=== PATIENT | male | born 1975 | race Caucasian/White ===

== ENCOUNTER 2020-01-26 13:32 | Outpatient (CLI) | payer OTHER ==
--- NOTE | 2020-01-26 15:46 | MRI ---
MRI cervical spine with and without contrast: DATE: 01/26/2020 HISTORY: 44-year-old male with "M 54.12 cervical radiculopathy and M 50.2 HNP" Also bilateral lower extremity weakness. Dr. Narayan Garcia notified of the suspicion for cord tumor by text at 3:40 PM 01/26/2020 and by Jeffrey cat nnect at 3:17 PM 01/26/2020. Also, code T submitted COMPARISON: None available FINDINGS: The cervical spinal cord is expanded from approximately C4-5 through C6-7. There is T2-hyperintense i ntramedullary signal abnormality, which could represent cord edema, or combination of cord edema and neoplastic tumor material, from approximately mid C4 level to mid C7 level. There is no syrinx. A t the C5-6 level, there is patchy intramedullary enhancement of the of the cord diffusely, except for apparent sparing of the central guerrero matter. Vertebral body heights are maintained. No high-grade facet DJD at any level. Mild disc space narrowin g at C5-6 and C6-7. Nonspecific diffusely hypointense signal on T1 WI, perhaps representing red marrow conversion. C1-2: No central stenosis. C2-3: Essentially normal. C3-4: Shallow, mild broad-based disc-osteophyte complex encroaches upon ventral aspect of spinal roro l, causing mild to moderate central spinal canal stenosis. Small bilateral uncinate process osteophytes cause moderate right and mild to moderate left neural foraminal stenosis. C4-5: Broad-based disc-osteophyte complex encroaches upon anterior aspect of spinal canal. There is a superimposed right paracentral-right lateral, more focal component of disc herniation or disc-osteophyte complex, which is contiguous with small to moderate-sized right uncinate process oste ophytes, resulting in severe right neural foraminal stenosis. Left uncinate process osteophytes result in severe left neural foraminal stenosis. Together with the mildly expanded spinal cord, these factors result in moderate central spinal canal stenosis. C5-6: Broad-based central, bilateral paracentral, and bilateral lateral disc herniation or disc-osteo phyte complex, larger than the one at C4-5, indents the expanded spinal cord, causing severe central spinal canal stenosis. Moderate to large bilateral uncinate process osteophytes cause severe bilateral neural foraminal stenosis. C6-7: Broad-based central, bilateral paracentral, and bilateral lateral disc-osteophyte complex encro aches upon spinal canal. This, together with expanded spinal cord, results in severe central spinal canal stenosis. Large bilateral uncinate process osteophytes cause very severe bilateral neural ivan inal stenosis. C7-T1: No central or neural foraminal stenosis. IMPRESSION: 1.) Abnormal intramedullary signal and cord expansion, from approximately C4 through C7, with intrame dullary enhancement at C5-6 involving the low peripheral white matter, but sparing of central guerrero matter. 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 2) high-grade central spinal canal stenosis and severe bilateral neural foraminal stenosis, at C4-5, C5-6, and C6-7. The central spinal canal stenosis is severe at C4-5 and C5-6, with extrinsic cord impingement, due to broad-based disc-osteophyte complexes. The expansion of the spinal cord contribut es to the severe central spinal canal stenosis and cord impingement at these levels.
[2020-01-26] MEDS ORDERED: Magnevist 469MG/ML 20 ML VIAL ONE (15:48)
== END 2020-01-26 13:33 | disposition home or self-care (01) ==
LOC: TBSIIMAG 13:32
PROVIDERS: ATTEND Surgery
DX: M50.10 Cervical disc disorder with radiculopathy, unspecified cervical region (principal); M47.22 Other spondylosis with radiculopathy, cervical region; M48.02 Spinal stenosis, cervical region
CPT/HCPCS: 72156; A9579

== ENCOUNTER 2020-02-06 12:30 | Inpatient (IN) | payer OTHER ==
[2020-02-09 12:10] VITALS: BMI 23.0
[2020-02-10] MEDS ORDERED: Thrombin 5000 UNITS/5 ML VIAL ONE (06:39)
[2020-02-10] MEDS ORDERED: Bacitracin Zinc Ointment 30 gm TUBE ONE (06:39)
[2020-02-10 06:55] LABS: #Basophils 0.1 thou/uL (0.0-0.2); #Eosinphils 0.2 thou/uL (0.0-0.7); #Lymphocytes 2.5 thou/uL (1.20-3.40); #Monocytes 0.7 thou/uL (0.11-0.59); #Neutrophils 4.9 thou/uL (1.40-6.50); %Basophils 0.9 % (0.0-1.0); %Eosinophils 2.9 % (0.0-10.0); %Lymphocytes 29.9 % (21.0-51.0); %Monocytes 7.8 % (0.0-10.0); %Neutrophils 58.5 % (42.0-75.0); Hemoglobin 15.3 g/dL (14.0-18.0); Mean Corpuscular HGB CONC 33.5 g/dL (32.0-36.0); Mean Corpuscular Hemoglobin 32.3 pg (27.0-31.0); Mean Corpuscular Volume 96.4 fL (78.0-98.0); Mean Platelet Volume 7.4 fL (7.4-10.4); Platelet Count 286 thou/uL (130-400); RBC Distribution Width 12.5 % (11.5-14.5); Red Blood Cell (RBC) Count 4.75 mill/uL (4.70-6.10); White Blood Cell (WBC) Count 8.4 thou/uL (4.8-10.8)
[2020-02-10 07:03] LABS: INR-International Normal Ratio 0.9; PTT 30.1 sec (22.9-36.1); Prothrombin Time 12.6 sec (12.0-14.7)
[2020-02-10] MEDS ORDERED: Fentanyl 250 MCG/5 ML VIAL ONE (07:11)
[2020-02-10 07:12] LABS: Anion Gap 12 mmol/L (10-20); BUN (Urea Nitrogen) 15 mg/dL (8.9-20.6); Calc. Creatinine Clearance 82 mL/min (70-130); Calcium 9.2 mg/dL (7.8-10.44); Carbon Dioxide 25 mmol/L (22-29); Chloride 109 mmol/L (98-107); Estimated GFR-MDRD 65; Glucose 96 mg/dL (70-105); Potassium 4.1 mmol/L (3.5-5.1); Sodium 142 mmol/L (136-145)
[2020-02-10] MEDS ORDERED: Ketamine 50 MG/ML (10ML VIAL) ONE (07:48)
[2020-02-10] MEDS ORDERED: Vecuronium 10 MG VIAL ONE ×2 (10:30→11:15)
[2020-02-10] MEDS ORDERED: Rocuronium Bromide 10 MG/ML (10ML VIAL) ONE (11:15)
[2020-02-10] MEDS ORDERED: Lidocaine 1% PF 5 ML VIAL ONE (11:15)
[2020-02-10] MEDS ORDERED: Ondansetron PF 4 MG/2 ML Vial ONE (11:15)
[2020-02-10] MEDS ORDERED: PROPOFOL 200 MG/20 ML VIAL ONE (11:15)
[2020-02-10] MEDS ORDERED: Dexamethasone 20 MG/5 ML VIAL ONE (11:15)
[2020-02-10] MEDS ORDERED: PHENYLEPHRINE-NS 100 MCG/ML 10 ML SYRINGE ONE (11:15)
[2020-02-10] MEDS ORDERED: Metoclopramide HCl 10 MG/2 ML VIAL ONE (11:15)
[2020-02-10] MEDS ORDERED: Morphine Sulfate 2 MG/ML SYRINGE SLOW IVP PRN (11:51)
[2020-02-10] MEDS ORDERED: HYDROmorphone 2 MG/ML VIAL SLOW IVP PRN (11:51)
[2020-02-10] MEDS ORDERED: Promethazine HCl 25 MG/ML VIAL SLOW IVP PRN (11:51)
[2020-02-10] MEDS ORDERED: Promethazine HCl 25 MG/ML VIAL IM PRN ×2 (11:51→18:07)
[2020-02-10] MEDS ORDERED: Ondansetron HCl/PF 4 MG/2 ML Vial IVP PRN (11:51)
[2020-02-10] MEDS ORDERED: PACU-Morphine 4MG/ML VIAL SLOW IVP PRN (11:51)
[2020-02-10] MEDS ORDERED: SUGAMMADEX SODIUM 200 MG/2 ML VIAL ONE (12:05)
[2020-02-10] MEDS ORDERED: Fleet Enema 133 ML BOT PR PRN (12:26)
[2020-02-10] MEDS ORDERED: Bisacodyl 10 MG SUPP PR PRN (12:26)
[2020-02-10] MEDS ORDERED: Ondansetron PF 4 MG/2 ML Vial IVP PRN ×2 (12:26→18:07)
[2020-02-10] MEDS ORDERED: Acetaminophen 325 MG TAB PO PRN (12:26)
[2020-02-10] MEDS ORDERED: Acetaminophen/Codeine 30-300mg Tablet PO PRN (12:26)
[2020-02-10] MEDS ORDERED: Mag-Al 1200 mg/1200 mg/30 ML UDCUP PO PRN (12:26)
[2020-02-10] MEDS ORDERED: traMADol HCl 50 MG TAB PO PRN (12:26)
[2020-02-10] MEDS ORDERED: HYDROcodone/Acetaminophen 7.5/325 mg Tablet PO PRN (12:26)
[2020-02-10] MEDS ORDERED: Milk Of Magnesia 30 ML UDCUP PO PRN (12:26)
[2020-02-10] MEDS ORDERED: Fentanyl 100 MCG/2 ML VIAL ONE (12:56)
[2020-02-10] MEDS: Sodium Chloride 0.9% 1,000 ML IV SCH (15:03)
[2020-02-10] MEDS: CEFAZOLIN 2 GM in Premix Bag 1 BAG IVPB SCH ×2 (15:04→22:46)
[2020-02-10] MEDS: Morphine 2 MG/ML SYRINGE SLOW IVP PRN ×2 (15:05→16:53)
[2020-02-10] MEDS: Cyclobenzaprine 10 MG TAB PO SCH ×2 (15:05→21:01)
[2020-02-10] MEDS ORDERED: diphenhydrAMINE 50 MG/ML VIAL IM/IV PRN (18:07)
[2020-02-10] MEDS ORDERED: Zolpidem Tartrate 5 MG TAB PO PRN (18:07)
[2020-02-10] MEDS ORDERED: Naloxone HCl 0.4 mg/ml Vial IV PRN (18:07)
[2020-02-10] MEDS ORDERED: diphenhydrAMINE 25 MG CAP PO PRN (18:07)
[2020-02-10] MEDS ORDERED: Ketorolac Tromethamine 30 MG/ML VIAL ONE (18:33)
[2020-02-10] MEDS: Morphine Sulfate 100 MG in Dextrose 5% in Water 98 ML IV SCH (18:48)
[2020-02-10] MEDS: DULoxetine 30 MG CAP PO SCH (21:01)
[2020-02-10] MEDS: Mirtazapine 15 MG TAB PO SCH (21:02)
[2020-02-10] MEDS: hydrOXYzine 25 MG TAB PO SCH (21:02)
[2020-02-11] MEDS: Sodium Chloride 0.9% 1,000 ML IV SCH ×2 (02:13→15:00)
[2020-02-11] MEDS: CEFAZOLIN 2 GM in Premix Bag 1 BAG IVPB SCH ×3 (06:11→23:27)
--- NOTE | 2020-02-11 06:26 | OP ---
DATE OF PROCEDURE: 02/10/2020 LOCATION: OR 12. SIGNAL TOWER OPERATOR: Елена Randle PA-C PREPROCEDURE DIAGNOSIS: Severe cervical stenosis with spinal cord compression, neurologic decline. POSTPROCEDURE DIAGNOSIS: Severe cervical stenosis with spinal cord compression, neurologic decline. PROCEDURES PERFORMED: 1. Anterior C5-C6 and C6-C7 diskectomies for decompression of spinal cord and nerve roots. 2. Placement of interbody spacer for arthrodesis with local bone autograft with allograft C5-C6 and C6-C7. 3. Anterior cervical plate and screw fixation, C5, C6, and C7. 4. Use of operative microscope for microdissection. 5. C5-C6 and C6-C7 laminectomies, partial facetectomies, foraminotomies. 6. C5, C6, and C7 posterolateral fusion with screw alicia fixation. DESCRIPTION OF PROCEDURE: After informed consent was obtained from the patient, the patient was brought to the OR. Proper patient, pause, and identification were carried out. He was placed under excellent general endotracheal anesthesia and positioned supine on the OR table. The right anterior oblique tong allowed for approach to C5, C6, and C7 segments. This area was sterilely cleansed, prepared, and draped. Proper patient, pause, and identification were carried out. The wound was then opened with combination of sharp, monopolar, and blunt dissection. We proceeded lateral to the tracheoesophageal bundle, medial to the right carotid sheath. We identified the prevertebral layer of deep cervical fascia. Retractors were placed. C5, C6, and C7 segments and disks were exposed. Localization film confirmed our area of interest. We then performed distraction at C5-C6. The microscope was used for microdissection. C5-C6 diskectomy was then performed with excellent decompression of the common dural tube and C6 nerve roots. Interbody spacer packed with graft was placed for initiation of arthrodesis. We then did the same thing at C6-C7 diskectomy and placement of interbody spacer packed with graft. Microscope was then removed. Anterior cervical plate and screw fixation at C5, C6, and C7 then occurred with final tightening. The wound was closed in anatomic layers following meticulous hemostasis and irrigation over drain. We then positioned the patient prone with Wick Claudia cigar head piercer locked in neutral position. C5, C6, and C7 segments were drawn out posteriorly, and this area was sterilely cleansed, prepared, and draped. Proper patient, pause, and identification were carried out. The wound was then opened with a combination of sharp, monopolar, and blunt dissection. C5, C6, and C7 dorsal spines and lamina were exposed. Localization film confirmed our area of interest. We then performed C5, C6, and C7 laminectomies, partial facetectomies, foraminotomies, and screws were placed in the lateral masses, C5, C6, and C7 along with rods and final tightening. Satisfied with our construct. Copious irrigation occurred throughout as did maximizing hemostasis. The wound was then closed in anatomic layers following sprinkling of vancomycin powder. Job ID: [id number]
[2020-02-11] MEDS: Cyclobenzaprine 10 MG TAB PO SCH ×3 (09:20→21:19)
[2020-02-11] MEDS: DULoxetine 30 MG CAP PO SCH ×2 (09:20→21:19)
[2020-02-11] MEDS: Bupropion 150 MG XL TAB PO SCH (09:20)
--- NOTE | 2020-02-11 10:04 | PRG ---
DATE OF SERVICE: 02/11/2020 Mr. Terry is postoperative day 1 from anterior-posterior decompression reconstruction of spinal cord. He does feel as if he can lay flat now and this is something he states he has not done in years. He continues to have moderate hand intrinsic weakness, but does move his lower extremities with a bit more vigor compared to preoperatively. We will continue to monitor him closely. The biggest issue that we will need to watch for is urinary retention as he had a bladder scan overnight, that demonstrated 900 mL, and required in-and-out catheterization. I have spoken with him and should he go home, which he would like to do. Even today I have let him know that today is too early as he has had essentially 2 surgeries 24 hours out from that. I want to make sure his bladder is functioning or at least that he has an indwelling catheter to go home with. Job ID: [id number]
[2020-02-11] MEDS ORDERED: Tamsulosin HCl 0.4 MG CAP PO SCH (10:30)
[2020-02-11] MEDS: Morphine Sulfate 100 MG in Dextrose 5% in Water 98 ML IV SCH (17:00)
[2020-02-11] MEDS: hydrOXYzine 25 MG TAB PO SCH (21:19)
[2020-02-11] MEDS: Mirtazapine 15 MG TAB PO SCH (21:19)
[2020-02-12] MEDS: CEFAZOLIN 2 GM in Premix Bag 1 BAG IVPB SCH ×3 (06:30→22:24)
[2020-02-12] MEDS: Sodium Chloride 0.9% 1,000 ML IV SCH ×3 (06:40→21:37)
--- NOTE | 2020-02-12 07:56 | EKG ---
Test Reason : PREOP Blood Pressure : / mmHG Vent. Rate : 078 BPM Atrial Rate : 078 BPM P-R Int : 136 ms QRS Dur : 096 ms QT Int : 376 ms P-R-T Axes : 067 064 072 degrees QTc Int : 428 ms Normal sinus rhythm Normal ECG No previous ECGs available Confirmed by DR. Clay CAMACHO ([id number]) on 02/12/2020 7:55:55 AM Referred By: ODALIS Confirmed By:DR. Clay CAMACHO
[2020-02-12] MEDS: Cyclobenzaprine 10 MG TAB PO SCH ×3 (08:42→20:06)
[2020-02-12] MEDS: Bupropion 150 MG XL TAB PO SCH (08:42)
[2020-02-12] MEDS: DULoxetine 30 MG CAP PO SCH ×2 (08:42→20:06)
[2020-02-12] MEDS: Tamsulosin HCl 0.4 MG CAP PO SCH (08:43)
[2020-02-12] MEDS: Morphine Sulfate 100 MG in Dextrose 5% in Water 98 ML IV SCH (20:05)
[2020-02-12] MEDS: hydrOXYzine 25 MG TAB PO SCH (20:06)
[2020-02-12] MEDS: Mirtazapine 15 MG TAB PO SCH (20:07)
--- NOTE | 2020-02-13 00:11 | PRG ---
DATE OF SERVICE: 02/12/2020 SUBJECTIVE: Mr. Terry today is now 2 days status post anterior and posterior cervical decompression. He reports that his pain is improved today compared to yesterday. He remains weak throughout his upper and lower extremities, greater on the left. He states that he has not yet attempted to ambulate today and that PT has not been by when I saw him this afternoon. He required a Brantley catheter to be placed last night due to urinary retention after he had already undergone 2 in and out catheterizations and had been started on Flomax. His GAIL drain output has been well and I removed the drain without complication today. At this time, we are currently pending acceptance to inpatient rehab. The patient will benefit from further therapies and mobilization prior to going home. Overall, patient seems in better spirits today. We will re-evaluate him tomorrow. Please call for any neurologic changes or other concerns. Job ID: [id number]
[2020-02-13] MEDS: CEFAZOLIN 2 GM in Premix Bag 1 BAG IVPB SCH ×2 (06:35→13:25)
[2020-02-13] MEDS: Bupropion 150 MG XL TAB PO SCH (08:17)
[2020-02-13] MEDS: Tamsulosin HCl 0.4 MG CAP PO SCH (08:17)
[2020-02-13] MEDS: DULoxetine 30 MG CAP PO SCH ×3 (08:17→21:22)
[2020-02-13] MEDS: Cyclobenzaprine 10 MG TAB PO SCH ×3 (08:17→21:22)
[2020-02-13] MEDS ORDERED: traMADol HCl 50 MG TAB PO PRN (08:55)
[2020-02-13] MEDS ORDERED: HYDROcodone/Acetaminophen 10/325 mg Tablet PO PRN (08:55)
[2020-02-13] MEDS ORDERED: Fentanyl 100 MCG/2 ML VIAL SLOW IVP PRN (08:56)
[2020-02-13] MEDS ORDERED: Diazepam 5 MG TAB PO PRN (09:53)
--- NOTE | 2020-02-13 10:14 | PRG ---
DATE OF SERVICE: 02/13/2020 Mr. Terry is now postoperative day 3 following anterior-posterior C5-C7 decompression fusion for severe myelopathy. He has good strength throughout his lower extremity myotomes. This is certainly improved. He remains with moderate hand intrinsic weakness. The biggest issue has been muscle spasm with mobilization and urinary retention related to his longstanding cord compression. He will need inpatient rehab. We will add Decadron and Toradol for anti-inflammatory effect and Valium for muscle spasm reduction. He will have a Brantley catheter in place for approximately 7 to 10 days and it can be removed by his primary care physician. Job ID: [id number]
[2020-02-13] MEDS: HYDROcodone/Acetaminophen 10/325 mg Tablet PO PRN (10:21)
[2020-02-13] MEDS: Dexamethasone 4 MG TAB PO SCH ×3 (10:21→21:23)
[2020-02-13] MEDS: Ketorolac Tromethamine 30 MG/ML VIAL IVP SCH ×3 (11:55→23:10)
[2020-02-13] MEDS: Sodium Chloride 0.9% 1,000 ML IV SCH (21:19)
[2020-02-13] MEDS: hydrOXYzine 25 MG TAB PO SCH (21:21)
[2020-02-13] MEDS: Mirtazapine 15 MG TAB PO SCH (21:23)
[2020-02-14] MEDS: Dexamethasone 4 MG TAB PO SCH ×4 (05:00→19:42)
[2020-02-14] MEDS: Ketorolac Tromethamine 30 MG/ML VIAL IVP SCH ×3 (05:33→13:18)
--- NOTE | 2020-02-14 08:58 | PRG ---
DATE OF SERVICE: 02/14/2020 I saw Mr. Terry in his hospital room this morning. His maximum temperature recorded overnight was 99.9 degrees Fahrenheit. His systolic blood pressures have been in 100 to 120s. His heart rate is sometimes elevated into the 100s. I do not find any neurological deficits in spite of an episode where he lowered himself to the ground and getting out of bed yesterday and had climbed back into the bed on his own. He is awaiting rehab placement. Once rehab is accepted them and there is a bed available, he can be transferred. This could be as early as today. More likely, it would happen on Sunday. Job ID: [id number]
[2020-02-14] MEDS: DULoxetine 30 MG CAP PO SCH ×2 (10:13→19:41)
[2020-02-14] MEDS: Bupropion 150 MG XL TAB PO SCH (10:13)
[2020-02-14] MEDS: Cyclobenzaprine 10 MG TAB PO SCH ×3 (10:13→19:41)
[2020-02-14] MEDS: Sodium Chloride 0.9% 1,000 ML IV SCH ×2 (10:14→19:43)
[2020-02-14] MEDS: Tamsulosin HCl 0.4 MG CAP PO SCH (10:14)
[2020-02-14] MEDS: HYDROcodone/Acetaminophen 10/325 mg Tablet PO PRN (13:19)
[2020-02-14] MEDS: Mirtazapine 15 MG TAB PO SCH (19:41)
[2020-02-14] MEDS: hydrOXYzine 25 MG TAB PO SCH (19:41)
[2020-02-15] MEDS: Dexamethasone 4 MG TAB PO SCH ×2 (03:03→09:12)
--- NOTE | 2020-02-15 07:43 | PRG ---
DATE OF SERVICE: 02/15/2020 I saw Buddy Terry in his hospital room this morning. He is still making a slow, but steady recovery from his anterior-posterior cervical decompression fusion. He has been afebrile for the last 24 hours. His blood pressure has been in the 110s to 130s. His upper motor neuron weakness is improving. Today, Mr. Terry would like us to advance his diet, and I think it is reasonable to do so. He will continue with his Physical Therapy and he awaits rehab placement. Job ID: [id number]
[2020-02-15] MEDS: Bupropion 150 MG XL TAB PO SCH (09:12)
[2020-02-15] MEDS: Tamsulosin HCl 0.4 MG CAP PO SCH (09:12)
[2020-02-15] MEDS: Cyclobenzaprine 10 MG TAB PO SCH ×3 (09:12→20:35)
[2020-02-15] MEDS: DULoxetine 30 MG CAP PO SCH ×2 (09:12→20:35)
[2020-02-15] MEDS: HYDROcodone/Acetaminophen 10/325 mg Tablet PO PRN (11:20)
[2020-02-15] MEDS: Sodium Chloride 0.9% 1,000 ML IV SCH (12:55)
[2020-02-15] MEDS: Dexamethasone 1 MG TAB PO SCH ×2 (16:32→22:32)
[2020-02-15] MEDS: hydrOXYzine 25 MG TAB PO SCH (20:34)
[2020-02-15] MEDS: Mirtazapine 15 MG TAB PO SCH (20:35)
[2020-02-16] MEDS: Dexamethasone 1 MG TAB PO SCH ×4 (04:49→21:39)
[2020-02-16] MEDS: Sodium Chloride 0.9% 1,000 ML IV SCH ×2 (06:37→17:57)
[2020-02-16] MEDS: Bupropion 150 MG XL TAB PO SCH (08:33)
[2020-02-16] MEDS: Cyclobenzaprine 10 MG TAB PO SCH ×3 (08:33→20:28)
[2020-02-16] MEDS: Tamsulosin HCl 0.4 MG CAP PO SCH (08:34)
[2020-02-16] MEDS: DULoxetine 30 MG CAP PO SCH ×2 (08:34→20:28)
--- NOTE | 2020-02-16 17:46 | PRG ---
DATE OF SERVICE: 02/16/2020 Mr. Terry is postop day #6 after undergoing anterior and posterior cervical decompression and fusion. He continues to demonstrate improvement with regard to strength in his upper and lower extremities over the weekend. I am particularly pleased with his improvement in his left upper and lower extremity strength. He appears more comfortable this morning during my evaluation. He is no longer requiring any IV pain medications. His diet was progressed to solid food over the weekend. He reports mild difficulty with swallowing, but has had no incidence of choking. No significant hoarseness. His Brantley catheter remains in place and he requests that this to be removed today. He states that he has been ambulating multiple times daily and has had no falls since surgery. He continues to wear his Berwind J cervical collar. Today, he requests to shower and I have approved this. He was provided with a Knox collar for showers. I have discontinued his Brantley catheter and ordered q.4 hours bladder scans to monitor for urinary retention. He will require in and out catheterization for residual urine greater than 400 mL. We will replace the Brantley catheter if necessary to prevent trauma to the bladder. At this time, the patient remains pending approval for inpatient rehab. He may be once approved. Our team will arrange for appropriate outpatient followup in 2 to 3 weeks. Our team will continue to monitor the patient while he is in the hospital. Please call for any neurologic changes or other concerns. Job ID: [id number]
[2020-02-16] MEDS: hydrOXYzine 25 MG TAB PO SCH (20:28)
[2020-02-16] MEDS: Mirtazapine 15 MG TAB PO SCH (20:31)
[2020-02-17] MEDS: Sodium Chloride 0.9% 1,000 ML IV SCH (03:15)
[2020-02-17] MEDS: Dexamethasone 1 MG TAB PO SCH ×3 (03:17→16:31)
[2020-02-17] MEDS: DULoxetine 30 MG CAP PO SCH (08:52)
[2020-02-17] MEDS: Bupropion 150 MG XL TAB PO SCH (08:52)
[2020-02-17] MEDS: Tamsulosin HCl 0.4 MG CAP PO SCH (08:52)
[2020-02-17] MEDS: Cyclobenzaprine 10 MG TAB PO SCH ×2 (08:52→16:31)
--- NOTE | 2020-02-17 10:53 | PRG ---
DATE OF SERVICE: 02/17/2020 Mr. Terry is 7 days out from anterior-posterior decompression fusion for signal abnormality due to significant spinal cord compression. He has made excellent strides and frankly would like to go home. As such, we will make arrangements. I have watched him walk even without a walker, although I have encouraged him to use a walker. Followup has been arranged already. There is too much delay in trying to get him to inpatient rehab. Job ID: [id number]
[2020-02-17 15:04] VITALS: BP 162/92; TEMP 98.3
[2020-02-17] MEDS ORDERED: Dexamethasone 1 MG TAB PO SCH (22:00)
[2020-02-20] MEDS ORDERED: Dexamethasone 1 MG TAB PO SCH (04:00)
== END 2020-02-17 16:15 | disposition home or self-care (01) | DRG 454 ==
LOC: SURG A 02-10 06:27 → SURG B 02-10 13:48
PROVIDERS: ADMIT Surgery; ATTEND Surgery
PROC: 0RG20A0 Fusion of 2 or more Cervical Vertebral Joints with Interbody Fusion Device, Anterior Approach, Anterior Column, Open Approach (ICD-10-PCS; principal; 2020-02-10)
PROC: 0RG2071 Fusion of 2 or more Cervical Vertebral Joints with Autologous Tissue Substitute, Posterior Approach, Posterior Column, Open Approach (ICD-10-PCS; 2020-02-10)
PROC: 0RB30ZZ Excision of Cervical Vertebral Disc, Open Approach (ICD-10-PCS; 2020-02-10)
PROC: 01N10ZZ Release Cervical Nerve, Open Approach (ICD-10-PCS; 2020-02-10)
DX: M48.02 Spinal stenosis, cervical region (principal); M47.12 Other spondylosis with myelopathy, cervical region; G95.20 Unspecified cord compression; M54.12 Radiculopathy, cervical region; R53.81 Other malaise; I10 Essential (primary) hypertension; G89.29 Other chronic pain; F17.210 Nicotine dependence, cigarettes, uncomplicated; F10.10 Alcohol abuse, uncomplicated; K59.00 Constipation, unspecified
CPT/HCPCS: 36415; 76000; 80048; 85025; 85610; 85730; 86850; 86900; 86901; 93005; 93010; C1713; C1768; C1776; J0690; J1100; J1885; J2001; J2270; J2405; J2704; J2765; J3010; J3370; J3490; J7070; J8540; L0174